=== PATIENT | male | born 1975 | race Caucasian/White ===

== ENCOUNTER 2017-04-03 11:59 | Inpatient (IN) | payer OTHER ==
--- NOTE | ~2017-04-03 | DS ---
Unit #: [id number] #: [id number] Patient: LIO MALONE [id number] [address] [place], [place] [address] [id number] I MR#: [id number] NAME: LIO MALONE ROOM: 457 Age: 41 Sex: M Admission Date: 04/03/2017 : 1975 Discharge Date: 04/05/2017 Attending Physician: Lana Goldberg M.D. Primary Care Physician: Mary Tellez M.D. DISCHARGE SUMMARY ADMITTING DIAGNOSIS Right tibial shaft fracture. DISCHARGE DIAGNOSIS Right tibial intramedullary nail placement status post right tibial shaft fracture. ATTENDING/SERVICES CARING Isidro Goldberg M.D. and HIPS. PROCEDURES Right tibial intramedullary nail placement. HISTORY This is a 41-year-old white male status post fall from a ladder while painting his garage. Patient reports he was intoxicated at the time of the fall and also reports that he is an alcoholic. The patient noticed pain and deformity to his right lower extremity; therefore, he went to [facility] Emergency Room and was then transferred to Dr. Goldberg's clinic for further examination. No outside labs were performed. HOSPITAL COURSE The patient underwent right tibial intramedullary nail placement on 04/04/2017. He was admitted one night prior to his surgery in order to obtain preoperative clearance due to his reported use of alcohol. The patient's right tibial intramedullary nail placement surgery went well. CBC, BMP and urinalysis were drawn while in the hospital, and all labs remained within normal limits. On 04/05/2017 he was examined and reported to be resting comfortably. He did report minimal pain in his right lower extremity. He reported good feeling in his toes and denied any fevers, sweats or chills. His bandages were removed, and his incision sites appeared to be clean, dry and intact. A new bandage was placed prior to his discharge. The patient worked with physical therapy to learn ambulation techniques with crutches prior to discharge. Dr. Goldberg would like for the patient to weightbear as tolerated with crutches. The patient should also keep his dressing intact and is not to change his dressing until his office visit with Dr. Goldberg in 10-14 days. CONDITION AT DISCHARGE Stable. Unit #: [id number] #: [id number] Patient: LIO MALONE Patient is being discharged home. He will weightbear as tolerated with the use of his crutches. He is to keep his dressing clean, dry and intact and in place until his office visit with Dr. Goldberg in 10-14 days. The patient is to call Dr. Goldberg's office in order to schedule his appointment. DISCHARGE MEDICATIONS 1. Percocet 5/325, take 1-2 tabs p.o. q.6 hours p.r.n. pain. (Dispense 50 with no refills.) 2. Xarelto 10 mg tablet, 1 tab p.o. daily. (Dispense #13, no refills.) DIET He may resume a regular diet. DISCHARGE INSTRUCTIONS In regards to discharge instructions and followup, again we would like the patient to work with physical therapy prior to his discharge in order to learn correct ambulation with crutches. Once the "patient feels PT is stable," he may be discharged home. Dr. Goldberg has requested that he be weightbearing as tolerated with his crutches while at home. He is to schedule his followup visit with Dr. Goldberg in 10 to 14 days. Call for appointment. DVT prophylaxis and pain scripts have been written for the patient. Patient is stable for discharge once he is cleared by physical therapy. Dictated by... Annabel John PA-C for Awilda Valladares TD: 04/15/2017 08:13 JOB #: [id number] CC: Ava Garner DISCHARGE SUMMARY Page 1 of 1 X X DISCHARGE SUMMARY
--- NOTE | ~2017-04-03 | DS ---
Unit #: [id number] #: [id number] Patient: LIO MALONE [id number] [address] [place], [place] [address] [id number] I MR#: [id number] NAME: LIO MALONE ROOM: 457 Age: 41 Sex: M Admission Date: 04/03/2017 : 1975 Discharge Date: 04/05/2017 Attending Physician: Lana Goldberg M.D. Primary Care Physician: Mary Tellez M.D. DISCHARGE SUMMARY ADMITTING DIAGNOSIS Right tibial shaft fracture. DISCHARGE DIAGNOSIS Right tibial intramedullary nail. ATTENDING/SERVICES CARING Ortho with Dr. Goldberg and HIPS. PROCEDURES Surgery included right tibial intramedullary nail with no further diagnostic procedures performed. HISTORY 41-year-old white male, status post fall from a ladder while painting his garage. Patient was intoxicated and reports he is an alcoholic. The patient noticed pain and deformity to his right lower extremity. He went to [facility] emergency room and was then transferred to Dr. Goldberg's clinic for further examination. LABS: CBC, BMP, and urinalysis were performed while in the hospital. All were within normal limits. HOSPITAL COURSE The patient underwent a right tibial intramedullary nail placement on 04/04/2017. He was admitted one night prior to his surgery in order to obtain preop clearance do to his reported use of alcohol. The patient's right tibial intramedullary nail placement surgery went well. Labs were drawn while in the hospital and all labs remained within normal limits. On 04/05/2017 he was examined and was reported to be resting comfortably. He did report some pain in his right lower extremity. He reported a good feeling in his toes and denied any fevers, sweats or chills. His bandages were removed and his incision sites appeared to be clean, dry and intact. A new bandage was placed on the patient. We had planned for the patient to work with physical therapy today in order for the patient to learn ambulation techniques with his crutches. Dr. Goldberg would like for him to be weightbearing as tolerated with his crutches. The patient should also keep his dressing intact and is not to change his dressing until his office visit with Dr. Goldberg in 10-14 days. CONDITION AT DISCHARGE Stable. Unit #: [id number] #: [id number] Patient: LIO MALONE Patient is being discharged home. He will weight bear as tolerated with the use of his crutches. He is to keep his dressing clean, dry and intact and in place until his office visit with Dr. Goldberg in 10-14 days. The patient is to call Dr. Goldberg's office in order to schedule his appointment. DISCHARGE MEDICATIONS 1. Percocet 5/325 take 1-2 tabs p.o. q.6 hours p.r.n. pain, dispense 50 with no refills. 2. He is also given a prescription for Xarelto 10 mg tablet 1 tab p.o. daily, dispense #13, no refills. DIET He may resume a regular diet. DISCHARGE INSTRUCTIONS In regards to discharge instructions and followup, again we would like the patient to work with physical therapy prior to his discharge in order to learn correct ambulation with crutches. Dr. Goldberg has requested that he be weightbearing as tolerated with his crutches while at home. He is to schedule his followup visit with Dr. Goldberg in 10 to 14 days. Call for appointment. DVT prophylaxis and pain scrips have been written for the patient. Patient is stable for discharge once he is cleared by physical. Dictated by... Annabel John PA-C for Awilda ValladaresG/ts TD: 04/08/2017 08:35 JOB #: [id number] CC: Awilda Valladares, Termite Exterminator Helper DISCHARGE SUMMARY Page 1 of 1 X ANNABEL JOHN X DISCHARGE SUMMARY
--- NOTE | ~2017-04-03 | HP ---
Unit #: [id number] #: [id number] Patient: LIO MALONE [id number] [address] [place], [place] [address] [id number] I MR#: [id number] NAME: LIO MALONE ROOM: [facility] Age: Sex: M Admission Date: 04/03/2017 : 1975 Attending Physician: Lana Goldberg M.D. Primary Care Physician: Mary Tellez M.D. HISTORY AND PHYSICAL HISTORY OF PRESENT ILLNESS This is a 41-year-old male who fell down early this morning off of a ladder while painting his garage. He was intoxicated and said that he slipped off the ladder. He had pain and deformity to his right lower extremity. He was first seen at [facility] emergency room and transferred to Dr. Goldberg's clinic for evaluation, denies pain elsewhere in the body, denies hitting his head. PAST MEDICAL HISTORY Past medical history is unremarkable, PAST SURGICAL HISTORY He had a left ankle open reduction and internal fixation. MEDICATIONS None. FAMILY HISTORY None. SOCIAL HISTORY He drinks six plus beers and six plus shots per day. He quit smoking two years ago. He denies drugs. 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 REVIEW OF SYSTEMS Unremarkable except for above; he denies fever, chest pain and shortness of breath, difficulty with urination, blurry vision or headache. PHYSICAL EXAMINATION GENERAL: He is in no apparent distress. He is alert and oriented x3. LUNGS: He has unlabored breathing. Clear to auscultation bilaterally all lung grewal. HEART: Auscultation reveals regular rate and rhythm of his heart. ABDOMEN: His abdomen is soft and nontender and nondistended. EXTREMITIES: His right lower leg is in a splint. He is able to move his toes up and down. The compartments surrounding the splint are expressible. There is brisk capillary refill. There is sensation intact to light touch distally in all the toes. DIAGNOSTIC STUDIES IMAGING: Two views of the right tibia demonstrate a distal diaphyseal spiral tibia fracture and a proximal diaphyseal fibular fracture. Ankle joint and knee joint appear congruent and intact. Unit #: [id number] #: [id number] Patient: LIO MALONE ASSESSMENT This is a 41-year-old male status post a fall from ladder with right tibia and fibula fracture. PLAN We will admit him for pain control and neurovascular monitoring. The plan is for intramedullary nail fixation tomorrow with the tibia. All questions were answered. There are no guarantees given. The patient and his are amenable to this decision and they elect to proceed with surgery. Dictated by Migue Neumann, Pgy2 for Awilda Valladares/candelario TD: 04/03/2017 17:50 JOB #: [id number] HISTORY AND PHYSICAL Page 1 of 1 X X HISTORY AND PHYSICAL
--- NOTE | ~2017-04-03 | CR253 ---
[facility] A Service of [facility] & [facility] RADIOLOGY TEXT RESULTS PATIENT: LIO MALONE LOCATION: [facility] : [birth year] UNIT #: [id number] AGE: [address]: Maura Goldberg MD SEX: M ORDER DR: [id number] [place] [id number] E MR#: [id number] Acc #: [id number] NAME: LIO MALONE : 1975 SEX: M STUDY DATE/TIME: 04/03/2017 12:31 UNIT: SED ROOM: STUDY DESCRIPTION: CR Tibia and Fibula 2 Views Rt Attending Physician: Leopoldo Steele Aprn Ordering Physician: Leopoldo Steele Aprn Primary Care Physician: Mary Tellez M.D. MEDICAL IMAGING REPORT This report is preliminary unless electronic signature is present. EXAM Right tibia-fibula 2 views 04/03/2017 INDICATIONS Leg pain today after falling. COMPARISON No comparisons. FINDINGS There is an obliquely oriented fracture with mild displacement through the distal tibia and obliquely oriented minimally-displaced fracture through the proximal fibula. IMPRESSION Obliquely oriented fractures of the distal tibia and the proximal fibula as described. Dictated by... Flaco Perez M.D. THIS IS AN ELECTRONICALLY VERIFIED REPORT Flaco Perez M.D. at 04/04/2017 7:14 AM ALEXI/kathy TD: 04/03/2017 16:15 JOB #: [id number] MEDICAL IMAGING REPORT Page 1 of 1
--- NOTE | ~2017-04-03 | CR72 ---
[facility] A Service of [facility] & [facility] RADIOLOGY TEXT RESULTS PATIENT: LIO MALONE LOCATION: [place] [address]- : [birth year] UNIT #: [id number] AGE: [address]: Maura Goldberg MD SEX: M ORDER DR: [id number] [facility] [address] [facility]. [place], [place] [address] [id number] I MR#: [id number] Acc #: [id number] NAME: LIO MALONE : 1975 SEX: M STUDY DATE/TIME: 04/04/2017 1:16 UNIT: [facility] ROOM: [facility] STUDY DESCRIPTION: CR Chest Single View Portable Attending Physician: Lana Goldberg M.D. Ordering Physician: Chuyita Astorga M.D. Primary Care Physician: Mary Tellez M.D. MEDICAL IMAGING REPORT This report is preliminary unless electronic signature is present EXAM Portable chest INDICATION Shortness of air today. PROCEDURE Frontal view chest. COMPARISON None FINDINGS Moderate cardiomegaly. No dense consolidation, pleural fluid or pneumothorax. IMPRESSION Cardiomegaly. No active process. Dictated by... Alex Santos M.D. THIS IS AN ELECTRONICALLY VERIFIED REPORT Alex Santos M.D. at 04/08/2017 7:23 AM Olivia TD: 04/04/2017 09:59 JOB #: [id number] MEDICAL IMAGING REPORT Page 1 of 1 COPY
--- NOTE | ~2017-04-03 | CR253 ---
[facility] A Service of [facility] & [facility] RADIOLOGY TEXT RESULTS PATIENT: LIO MALONE LOCATION: [facility] 457-01 : [birth year] UNIT #: [id number] AGE: [address]: Maura Goldberg MD SEX: M ORDER DR: [id number] [facility] [address] [facility]. [place], [place] [address] [id number] I MR#: [id number] Acc #: [id number] NAME: LIO MALONE : 1975 SEX: M STUDY DATE/TIME: 04/04/2017 8:57 UNIT: [facility] ROOM: [facility] STUDY DESCRIPTION: CR Tibia and Fibula 2 Views Rt Attending Physician: Lana Goldberg M.D. Ordering Physician: Lana Goldberg M.D. Primary Care Physician: Mary Tellez M.D. MEDICAL IMAGING REPORT This report is preliminary unless electronic signature is present EXAM Right tibia and fibula HISTORY Distal tibial fracture. Operative guidance for tibial nail placement. TECHNIQUE Five spot films were obtained over the tibia and fibula documenting placement of a tibial nail across a spiral fracture of the distal tibial shaft. Total fluoroscopy time 3 minutes 28 seconds. Alignment and position appears satisfactory. Please see the operative report for full details of the procedure. Dictated by... Bashir Thompson M.D. THIS IS AN ELECTRONICALLY VERIFIED REPORT Bashir Thompson M.D. at 04/04/2017 4:32 PM YUEF/kwadwo TD: 04/04/2017 12:53 JOB #: [id number] MEDICAL IMAGING REPORT Page 1 of 1 COPY
--- NOTE | ~2017-04-03 | CR21 ---
[facility] A Service of [facility] & [facility] & [facility] RADIOLOGY TEXT RESULTS PATIENT: LIO MALONE LOCATION: [facility] [address] : [birth year] UNIT #: [id number] AGE: [address]: Maura Goldberg MD SEX: M ORDER DR: [id number] [address] [address] [id number] E MR#: [id number] Acc #: [id number] NAME: LIO MALONE : 1975 SEX: M STUDY DATE/TIME: 04/03/2017 12:31 UNIT: SED ROOM: STUDY DESCRIPTION: CR Ankle Min 3 Views Rt Attending Physician: Leopoldo Steele Aprn Ordering Physician: Leopoldo Steele Aprn Primary Care Physician: Mary Tellez M.D. MEDICAL IMAGING REPORT This report is preliminary unless electronic signature is present. EXAM Right ankle series, 04/03/2017 HISTORY Trauma. Fell down 4 steps. Pain. Swollen. Right ankle right tib-fib. FINDINGS AP, lateral, oblique radiographs of the right ankle are presented. Complete oblique fracture of the distal shaft of the right tibia. Distal fracture fragment displaced laterally by about 8 mm and posteriorly by about 2 mm. Fracture fragments show mild distraction on order of 3-4 mm. There is mild medial angulation of the distal fracture fragment. The ankle mortise joint is normally located and aligned. No other fractures. Soft tissue swelling around the distal foreleg most pronounced anteriorly and medially. No soft tissue defect, subcutaneous air or radiodense foreign body. Dictated by... Deny Clark M.D. THIS IS AN ELECTRONICALLY VERIFIED REPORT Deny Clark M.D. at 04/04/2017 6:32 PM VESNA/martha TD: 04/03/2017 16:48 JOB #: [id number] MEDICAL IMAGING REPORT Page 1 of 1
--- NOTE | ~2017-04-03 | OR ---
Unit #: [id number] #: [id number] Patient: LIO MALONE [id number] [address] [place], [place] [address] [id number] I MR#: [id number] NAME: LIO MALONE ROOM: [facility] Date of Procedure: 04/04/2017 Admission Date: 04/03/2017 Surgeon: Lana Goldberg M.D. : 1975 Attending Physician: Lana Goldberg M.D. Primary Care Physician: Mary Tellez M.D. OPERATIVE REPORT PREOPERATIVE DIAGNOSIS Right distal tibial shaft fracture. POSTOPERATIVE DIAGNOSIS Right distal tibial shaft fracture. PROCEDURE PERFORMED Right tibial intramedullary nail ([id number]). ASSISTANTS MD Pati, and MD Thien. ANESTHESIA General. INDICATIONS FOR SURGERY The patient is a 41-year-old male, who fell while painting his garage 2 days ago. He has a spiral displaced fracture of the distal tibial shaft and proximal fibular shaft. The patient has unstable displaced fracture and will therefore undergo tibial intramedullary nailing. DESCRIPTION OF PROCEDURE The patient was taken to the operating room and placed in a supine position and general anesthetic was induced. The right leg was identified as the correct operative location during the time-out procedure. The IV antibiotic protocol was followed. The right leg was then prepped and draped in the usual sterile fashion. An extended lateral incision was used for insertion of the nail. A 3 cm incision was made just lateral to the patellar tendon. Dissection proceeded extra-articularly down to the proximal tibia. A threaded guide pin was then placed under C-arm fluoroscopic control in a center-center position in the proximal anterior tibia. This was then overdrilled with a starting reamer and the guide pin was placed. Longitudinal traction was used to reduce the fracture and the guide pin was advanced across the fracture. A bone clamp was then placed percutaneously across the fracture site to hold it in a reduced position while the leg was sequentially reamed with reamers beginning with an 8 mm diameter reamer and reaming up to an 11.5 mm diameter. Nail length was measured at 345 mm. A [employer] T2 nail, 10 mm diameter x 34.5 cm length was then impacted into place over the guide pin. It was locked proximally using the outrigger drill guide with an anterolateral and anteromedial oblique screw. It was then locked from medial to lateral using a freehand technique distally. Anatomic reduction was achieved with C-arm Unit #: [id number] #: [id number] Patient: LIO MALONE. All wounds were irrigated. The deep tissues were then closed with 2-0 Vicryl. Subcutaneous tissue was closed with 3-0 Vicryl and the skin was closed with 3-0 nylon horizontal mattress sutures. Xeroform gauze, dressing, sponges, and Maxwell wrap were applied. The patient was then transported to the recovery room in stable condition. ESTIMATED BLOOD LOSS Minimal. COMPLICATIONS None. SPECIMENS None. TOURNIQUET TIME Zero. Dictated by.Awilda Lynn/tom TD: 04/04/2017 18:16 JOB #: [id number] OPERATIVE REPORT Page 1 of 1 X Maura Goldberg MD X PROCEDURE OPERATIVE NOTE
--- NOTE | ~2017-04-03 | EKG ---
PATIENT: LIO MALONE UNIT #: [id number] Ventricular Rate: 69 BPM Atrial Rate: 69 BPM P-R Interval: 176 ms QRS Duration: 110 ms Q-T Interval: 424 ms QTC Calculation(Bezet): 454 ms P [place]: 34 degrees Calculated R [place]: -7 degrees Calculated T [place]: 1 degrees Diagnosis Line: Normal sinus rhythm Diagnosis Line: Incomplete right bundle branch block Diagnosis Line: Nonspecific T wave abnormality Diagnosis Line: Abnormal ECG Diagnosis Line: No previous ECGs available Diagnosis Line: Confirmed by ZAHRA QUINTANA MD ([id number]) on Diagnosis Line: 04/06/2017 9:49:14 AM INTERPRETING MD: LATOYA
--- NOTE | ~2017-04-03 | CO ---
Unit #: [id number] #: [id number] Patient: LIO MALONE [id number] [address] [place], [place] [address] [id number] I MR#: [id number] NAME: LIO MALONE ROOM: [facility] Age: 41 Sex: M Admission Date: 04/03/2017 : 1975 Attending Physician: Lana Goldberg M.D. Primary Care Physician: Mary Tellez M.D. Requesting Physician: Lana Goldberg M.D. Consultation Date: 04/04/2017 CONSULTATION REPORT REASON FOR CONSULT Alcohol abuse and preop clearance. HISTORY OF PRESENT ILLNESS This pleasant 41-year-old male with history of alcohol abuse, was admitted to Dr. Goldberg's service yesterday for a distal right tibial fracture. Early yesterday morning, the patient was on a ladder, states that he slipped a fell a few feet off the ladder onto his right ankle. He had significant pain. However, he was able to get to bed and sleep. When he got up, he continues to have significant pain and was seen, I believe, at [facility] ER. X-rays show a distal right tibial fracture with displacement. He was, therefore, transferred to this hospital and seen by Dr. Goldberg. He currently has a splint in place. The patient states that otherwise he is healthy except that he does drink on a daily basis, generally six beers and probably about a pint of alcohol daily. The patient denies symptoms of withdrawal. PAST MEDICAL HISTORY ORIF left ankle. SOCIAL HISTORY The patient lives alone. He is accompanied by his girlfriend. He stopped smoking two years ago. He generally drinks six beers a day along with a pint of alcohol daily. FAMILY HISTORY Negative for CAD. ALLERGIES None. HOME MEDICATIONS None. REVIEW OF SYSTEMS Notable for some acid reflux-like symptoms, slightly tender, left slightly enlarged cervical lymph node, daily alcohol use, fall with right ankle pain. All other systems were reviewed and otherwise negative. PHYSICAL EXAMINATION GENERAL APPEARANCE: A pleasant, 41-year-old male who currently is in no acute distress. VITAL SIGNS: Temperature 98.9. Respirations 18. O2 saturation 98%. Blood pressure 164/107 but was previously 132/97. We will monitor. Unit #: [id number] #: [id number] Patient: LIO MALONE HEENT: Eyes: PERRLA. Extraoculars are intact. Pharynx is benign. NECK: Supple. There may be a very slight enlargement of the left submandibular gland or left tonsillar lymph node as compared to the right. No masses. CHEST: Clear. CARDIAC: Normal S1, S2 without S3, S4, murmur. ABDOMEN: Bowel sounds are present. No hepatosplenomegaly, tenderness or masses. EXTREMITIES: There is a splint right lower leg. Left foot without edema. Pedal pulse on the left normal. NEUROLOGIC: The patient is awake, alert, oriented. Cranial nerves are intact. Equal strength throughout. DIAGNOSTIC STUDIES LABORATORY: Hematocrit 47.9, WBC count 14.2, normal MCV and coags. SMA-12: Potassium 3.2, ALT 55. Urinalysis is negative. IMAGING: X-ray of the right ankle shows a complete oblique fracture of the distal shaft of the right tibia displaced and mildly angulated. ASSESSMENT 1. Distal right tibial fracture following a fall off a ladder. 2. Alcohol abuse. 3. Hypokalemia. PLAN 1. Chest x-ray and EKG. 2. Replace potassium and check magnesium. 3. Gentle fluids. 4. Ativan and vitamins. 5. Patient will be cleared for surgery by morning depending on above. Thank you very much for this consult. Dictated by... Chuyita Astorga M.D. AML/bd TD: 04/04/2017 06:24 JOB #: [id number] CONSULTATION REPORT Page 1 of 1 X Chuyita Astorga MD X CONSULTATION REPORT
[2017-04-03] MEDS ORDERED: NO MEDICATIONS (12:09)
[2017-04-03 20:49] LABS: HEMATOCRIT 47.9 % (38.0-50.0); HEMOGLOBIN 16.2 gm/dL (13.0-16.0); MEAN CELL VOLUME 91.6 FL (83-96); MEAN CORPUSCULAR HGB CONC 33.8 g/dL (30-36); MEAN PLATELET VOLUME 9.5 FL (6.5-11.5); RED BLOOD COUNT 5.23 X10e (3.90-5.60); WHITE BLOOD COUNT 14.2 X10e3 (4.0-10.5)
[2017-04-03 21:06] LABS: PROTHROMBIN TIME (PATIENT) 10.8 SECONDS (9.6-11.5)
[2017-04-03 21:11] LABS: BILIRUBIN,TOTAL 1.4 mg/dL (0.2-2.0); CALCIUM SERUM 8.8 mg/dL (8.4-10.2); GLOM FILT RATE Estimated 94.4 mL/min (>60); POTASSIUM 3.2 mmol/L (3.5-5.1); PROTEIN TOTAL SERUM 7.4 g/dL (6.0-8.3)
[2017-04-03 23:37] LABS: URINE APPEARANCE CLEAR; URINE BILIRUBIN NEG (NEG); URINE BLOOD NEG (NEG); URINE COLOR YELLOW; URINE GLUCOSE NEG (NEG); URINE KETONE TRACE (NEG); URINE LEUKOCYTE ESTERASE NEG (NEG); URINE NITRATE NEG (NEG); URINE PH 5.5 (5-8); URINE PROTEIN NEG (NEG); URINE SPECIFIC GRAVITY 1.023 (1.003-1.035)
[2017-04-03 23:47] LABS: CULTURE INDICATED? NO
[2017-04-04 04:28] LABS: BASOPHIL% 0.3 % (0-2.5); EOSINOPHIL# 0.2 X10e3 (0-0.7); HEMATOCRIT 47.5 % (38.0-50.0); LYMPHOCYTE# 2.7 X10e3 (1.0-3.5); LYMPHOCYTE% 23.1 % (17.0-45.0); MEAN CELL VOLUME 92.1 FL (83-96); MEAN CORPUSCULAR HEMOGLOBIN 31.1 PG (28-34); MEAN CORPUSCULAR HGB CONC 33.7 g/dL (30-36); MONOCYTE# 1.3 X10e3 (0-1.0); MONOCYTE% 10.9 % (3.0-12.0); NEUTROPHIL# 7.6 X10e3 (1.5-7.1); NEUTROPHIL% 63.7 % (40-75); PLATELET COUNT 193 X10e3 (140-420); RED BLOOD COUNT 5.16 X10e (3.90-5.60); RED CELL DISTRIBUTION WIDTH 12.9 % (11.0-15.5); WHITE BLOOD COUNT 11.9 X10e3 (4.0-10.5)
[2017-04-04 04:30] LABS: DIFF IND NO
[2017-04-04 04:52] LABS: BUN/CREATININE RATIO 11.11; CALCIUM SERUM 8.9 mg/dL (8.4-10.2); CREATININE SERUM 0.9 mg/dL (0.6-1.4); GLOM FILT RATE Estimated 107.2 mL/min (>60); POTASSIUM 3.8 mmol/L (3.5-5.1)
[2017-04-05 03:46] LABS: BASOPHIL% 0.1 % (0-2.5); DIFF IND YES; EOSINOPHIL% 0.1 % (0.0-7.0); HEMATOCRIT 43.1 % (38.0-50.0); HEMOGLOBIN 14.4 gm/dL (13.0-16.0); LYMPHOCYTE# 2.3 X10e3 (1.0-3.5); LYMPHOCYTE% 13.7 % (17.0-45.0); MEAN CELL VOLUME 92.3 FL (83-96); MEAN CORPUSCULAR HEMOGLOBIN 30.8 PG (28-34); MEAN CORPUSCULAR HGB CONC 33.3 g/dL (30-36); MEAN PLATELET VOLUME 10.2 FL (6.5-11.5); MONOCYTE# 1.3 X10e3 (0-1.0); NEUTROPHIL% 78.1 % (40-75); PLATELET COUNT 179 X10e3 (140-420); RED BLOOD COUNT 4.67 X10e (3.90-5.60); WHITE BLOOD COUNT 16.7 X10e3 (4.0-10.5)
[2017-04-05 04:01] LABS: BUN/CREATININE RATIO 11.25; CALCIUM SERUM 8.8 mg/dL (8.4-10.2); CREATININE SERUM 0.8 mg/dL (0.6-1.4); GLOM FILT RATE Estimated 112.6 mL/min (>60); POTASSIUM 3.9 mmol/L (3.5-5.1)
[2017-04-05 04:13] LABS: ANISOCYTOSIS SL; PLATELET ESTIMATE NORMAL (NORMAL); STOMATOCYTE PRESENT
[2017-04-05] MEDS ORDERED: LISINOPRIL10 MG PO (14:46)
[2017-04-05] MEDS ORDERED: PERCOCET 5/321 UDTAB PO (14:46)
[2017-04-05] MEDS ORDERED: XARELTO10 MG PO (14:47)
== END 2017-04-05 15:08 | disposition home or self-care (01) | DRG 494 ==
LOC: SED 11:59 → CEDOF 17:00 → C4B 17:00 → CEDOF 18:06 → SED 18:06 → CEDOF 18:36 → C4B 18:36
PROVIDERS: Internal Medicine; Nurse Practitioner; Orthopaedic Surgery
PROC: 0QSG06Z Reposition Right Tibia with Intramedullary Internal Fixation Device, Open Approach (ICD-10-PCS; principal; 2017-04-04 07:30)
DX: S82.301A Unspecified fracture of lower end of right tibia, initial encounter for closed fracture (principal); I10 Essential (primary) hypertension; E87.6 Hypokalemia; S82.441A Displaced spiral fracture of shaft of right fibula, initial encounter for closed fracture; W11.XXXA Fall on and from ladder, initial encounter; Y93.89 Activity, other specified; Y92.015 Private garage of single-family (private) house as the place of occurrence of the external cause; Z87.891 Personal history of nicotine dependence; F10.20 Alcohol dependence, uncomplicated; K21.9 Gastro-esophageal reflux disease without esophagitis; F41.9 Anxiety disorder, unspecified
CPT/HCPCS: 29505; 71010; 73590; 73610; 76001; 80048; 80053; 81003; 83735; 85025; 85027; 85610; 93005; 94760; 97110; 97116; 97161; 99285; C1713; J0690; J1100; J1170; J1885; J2250; J2270; J2405; J3010; J3411; J3490